=== PATIENT | male | born 1970 | race Caucasian/White ===

== ENCOUNTER → 2023-02-20 11:13 | Outpatient (BNVA) | payer OTHER, SELFPAY | PROVIDERS: PCP Nurse Practitioner Family; Visit Provider Nurse Practitioner Family | DX: I10 Essential (primary) hypertension (principal) | CPT/HCPCS: 80053; 80061; 84443; 85025 ==

== ENCOUNTER → 2023-07-23 11:40 | Outpatient (BNVA) | payer OTHER, SELFPAY | PROVIDERS: PCP Nurse Practitioner Family; Visit Provider Nurse Practitioner Family | DX: I10 Essential (primary) hypertension (principal) | CPT/HCPCS: 80053; 80061; 85025 ==

== ENCOUNTER → 2024-10-09 10:08 | Outpatient (BNVA) | payer OTHER, SELFPAY | PROVIDERS: PCP Nurse Practitioner Family; Visit Provider Nurse Practitioner Family | DX: I10 Essential (primary) hypertension (principal) | CPT/HCPCS: 80053; 80061; 82607; 83036; 84443; 85025 ==

== ENCOUNTER 2024-11-03 07:40 | Outpatient (CLI) | payer OTHER, SELFPAY ==
--- NOTE | 2024-11-03 08:00 | US_ITS ---
WS: [id number] Exam: US liver 61002 Date/Time of Exam: 11/03/2024 7:45 AM Reason For Exam: K76.0 - Fatty (change of) liver, not elsewhere classified There is mild hepatic enlargement. The liver measures 17.4 cm in greatest dimension. The liver is echogenic most likely indicating hepatic steatosis. No hepatic masses were noted. No intrahepatic ductal dilatation. Gallbladder is unremarkable. Common bile duct is not dilated measures 5 mm in greatest d iameter. No ascites in the RIGHT abdomen. Subcentimeter RIGHT renal cyst. US/US liver [id number] IMPRESSION: 1. Mild hepatomegaly. The liver is echogenic suggesting hepatic steatosis. 2. No mass or biliary dilatation.
== END 2024-11-03 07:41 | disposition home or self-care (01) ==
PROVIDERS: PCP Nurse Practitioner Family; Visit Provider Nurse Practitioner Family
DX: R16.0 Hepatomegaly, not elsewhere classified (principal)
CPT/HCPCS: 76705

== ENCOUNTER → 2024-11-14 09:24 | Outpatient (BNVA) | payer OTHER, SELFPAY | PROVIDERS: PCP Nurse Practitioner Family; Visit Provider Nurse Practitioner Family | DX: R74.8 Abnormal levels of other serum enzymes (principal) | CPT/HCPCS: 80053; 86705; 86706; 86709; 86803; 87340 ==

== ENCOUNTER → 2025-01-21 08:37 | Outpatient (BNVA) | payer OTHER, SELFPAY | PROVIDERS: PCP Nurse Practitioner Family; Visit Provider Nurse Practitioner Family | DX: E11.9 Type 2 diabetes mellitus without complications (principal) | CPT/HCPCS: 80053; 80061; 83036; 85025 ==